=== PATIENT | female | born 1965 | race Caucasian/White ===

== ENCOUNTER 2016-10-24 08:14 | Day surgery (SDC) | payer OTHER ==
[~2016-10-24] VITALS: Ht 172.7 cm; Wt 111.0 kg
[~2016-10-24 08:14] MED LIST: ASPIRIN E.C. 8181 MG PO; HCTZ12.5TAB PO; NAPROSYN500 MG PO; OMEGA 31000 MG PO; TOPROL XL 25MG25 MG PO; ULTRAM 50MG TAB50 MG PO; VITAMIN D2000 I1 PO; ZYRTEC 10MG10 MG PO
[2016-10-24 08:33] VITALS: BP 135/108; PULSE 55; TEMP 97.9
[2016-10-24] MEDS ORDERED: HCTZ 25MG TAB25 MG PO (08:42)
[2016-10-24] MEDS ORDERED: MASON NATURAL2000 IU PO (08:43)
[2016-10-24] MEDS ORDERED: HAIRSKINNAILS PO (08:44)
[2016-10-24 10:25] VITALS: BP 120/79; PULSE 59; TEMP 97.1
[2016-10-24 10:40] VITALS: BP 116/72; PULSE 65
[2016-10-24 11:03] VITALS: BP 125/78; PULSE 61
== END 2016-10-24 10:50 | disposition home or self-care (01) ==
LOC: SDCO 08:14
DX: Z12.11 Encounter for screening for malignant neoplasm of colon (principal)
CPT/HCPCS: J2250; J2405; J3010; J7030

== ENCOUNTER → 2016-12-08 | Outpatient (CLI) | payer OTHER ==
[~2016-12-08] VITALS: Ht 168.9 cm; Wt 112.7 kg
[~2016-12-08] MED LIST changes: +HAIRSKINNAILS PO; +HCTZ 25MG TAB25 MG PO; +MASON NATURAL2000 IU PO
[2016-12-08 16:10] VITALS: BP 132/80; PULSE 64
== END ==
LOC: LIGHT 11-24 14:34
DX: E66.8 Other obesity (principal); Z68.39 Body mass index [BMI] 39.0-39.9, adult; I10 Essential (primary) hypertension; E78.4 Other hyperlipidemia